=== PATIENT | female | born 1985 | race African-American/Black ===

== ENCOUNTER 2016-04-11 11:18 | Emergency (ER) | payer SELFPAY ==
[~2016-04-11 11:18] MED LIST: AMOX400S3 PO; MMW SS
[2016-04-11 11:20] VITALS: BP 127/90; PULSE 80; RESP 16; TEMP 98; O2SAT 97
[2016-04-11] MEDS ORDERED: IBUPROFEN 800 MG TAB PO ONE (15:00)
--- NOTE | 2016-04-11 15:37 | RADRPT ---
EXAM DATE/TIME: 04/11/2016 15:15 [facility] COMPARISON: TOE RIGHT 1ST DIGIT(MIN 2VWS), June 07, 2014, 11:43. INDICATIONS : Pain in great toe after hitting it on couch. MEDICAL HISTORY : Previous fracture to great toe. SURGICAL HISTORY : None. ENCOUNTER: Initial ACUITY: 1 day PAIN SCORE: 10/10 LOCATION: Right Foot FINDINGS: Two view examination of the right foot demonstrates no soft tissue swelling, dislocation, or fracture . The calcaneus is intact. Bony mineralization is normal. CONCLUSION: 1. No acute bony abnormality identified. Kole Haro MD on April 11, 2016 at 15:32 Board Certified Radiologist. This report was verified electronically.
[2016-04-11] MEDS ORDERED: IBUP800T23 PO (15:45)
--- NOTE | 2016-04-11 15:45 | PD ---
HPI Chief Complaint: Pain: Acute or Chronic Time Seen by Provider: 15:00 Travel History International Travel<30 days: No Contact w/Intl Traveler<30days: No Traveled to known affect area: No History of Present Illness HPI Patient is a 30-year-old female who presented to emergency for evaluation of right first toe pain. Patient states she kicked her sofa just prior to arrival. She states that her pain is an 8 out of 10 and describes as aching and throbbing. Patient did not take anything for the pain because she said she was "waiting here for 3 hours". She denies any other complaints at this time. [facility]MERLY [facility] Past Medical History Medical History: Denies Significant Hx Diminished Hearing: No ?: Not : 2 Para: 0 Miscarriage: 0 : 1 Dilation and Curettage (D&C): No Past Surgical History Gynecologic Surgery: Yes () Social History Alcohol Use: No Tobacco Use: Yes (4-10 cigarettes per day but has discontinued throughout ) Substance Use: Yes (MARIJUANA-NOT SINCE PREG) Allergies-Medications (Allergen,Severity, Reaction): Coded Allergies: No Known Allergies (Verified , 04/11/16) Reported Meds & Prescriptions Reported Meds & Active Scripts Active Review of Systems Except as stated in HPI: all other systems reviewed are Neg Musculoskeletal: Positive: Myalgias, Arthralgias Physical Exam Narrative GENERAL: Well-nourished, well-developed patient. SKIN: Warm and dry. HEAD: Normocephalic. EYES: No scleral icterus. No injection or drainage. NECK: Supple, trachea midline. No JVD or lymphadenopathy. CARDIOVASCULAR: Regular rate and rhythm without murmurs, gallops, or rubs. RESPIRATORY: Breath sounds equal bilaterally. No accessory muscle use. GASTROINTESTINAL: Abdomen soft, non-tender, nondistended. MUSCULOSKELETAL: No cyanosis, or edema. No obvious deformity noted to right first toe. Positive pedal pulses, brisk less than 3 second capillary refill. 5 out of 5 muscle strength in bilateral lower extremities. Data Data Last Documented VS Vital Signs Date Time Temp Pulse Resp B/P Pulse Ox O2 Delivery O2 Flow Rate FiO2 04/11/16 11:20 98.0 80 16 127/90 97 Room Air Orders Foot, Limited (2vws) (04/11/16 ) Ibuprofen (Motrin) (04/11/16 15:00) MDM Medical Decision Making Medical Screen Exam Complete: Yes Emergency Medical Condition: Yes Interpretation(s) Vital Signs Date Time Temp Pulse Resp B/P Pulse Ox O2 Delivery O2 Flow Rate FiO2 04/11/16 11:20 98.0 80 16 127/90 97 Room Air Differential Diagnosis Fracture versus contusion versus sprain versus strain versus other Narrative Course Patient is a 30 year old female who presented to emergency for evaluation of right first toe pain that she sustained when kicking her couch prior to arrival. Patient has not taken anything to help alleviate her pain. Patient is neurovascularly intact, imaging ordered. Imaging of the right foot was negative for acute fracture or abnormality. Patient was given ibuprofen emergency department for pain. She is encouraged to continue range of motion exercises, apply warm moist heat alternating with ice to affected area. She can follow-up with her primary doctor. She can return to emergency department if she has any new or worsening symptoms. Patient is stable for discharge. Diagnosis Primary Impression: Toe pain, right Referrals: Primary Care Physician Patient Instructions: General Instructions Additional Instructions: Take medications as directed Follow-up with your primary doctor Return to emergency department for any new or worsening symptoms Med/Other Pt SpecificInfo: Prescription(s) given Scripts Ibuprofen 800 Mg [id number] Mg PO Q8H PRN (Pain/Inflammation) #60 TAB Ref 0 Prov:Karlie Maldonado 04/11/16 Disposition: 01 DISCHARGE HOME Condition: Stable Karlie Maldonado Apr 11, 2016 15:45
== END 2016-04-11 16:02 | disposition home or self-care (01) ==
LOC: NEPB 11:18
DX: M79.674 Pain in right toe(s) (principal); W22.09XA Striking against other stationary object, initial encounter
CPT/HCPCS: 73620; 99283

== ENCOUNTER 2016-11-05 16:28 | Emergency (ER) | payer SELFPAY ==
[~2016-11-05] VITALS: Ht 160 cm; Wt 77.5 kg
[~2016-11-05 16:28] MED LIST changes: -AMOX400S3 PO; +IBUP800T23 PO; -MMW SS
[2016-11-05 16:37] VITALS: BP 128/77; PULSE 79; RESP 16; TEMP 98.9; O2SAT 99
--- NOTE | 2016-11-05 16:57 | PD ---
HPI Chief Complaint: [employer] Problem/Complaint Time Seen by Provider: 16:41 Travel History International Travel<30 days: No Contact w/Intl Traveler<30days: No Traveled to known affect area: No History of Present Illness HPI PATIENT COMES IN C/O IRREGULAR VAG BLEEDING, MISSED LAST MONTH, ON 2 WEEKS EARLY FOR THIS MONTH, STATES UNDER A LOT OF STRESS AND ITS NOT UNUSUAL FOR HER PERIODS TO BECOME IRREGULAR. CRAMPY SUPRAPUBIC DISCOMFORT, 07/16, ASSOC WITH BLEEDING, CURRENTLY NO ACTIVE BLEEDING. PATIENT STATES NO PMHX, ONLY ONE CSECTION AND ONE ELECTIVE AB, FOR A , NKDA. PFSH Past Medical History Medical History: Denies Significant Hx Diminished Hearing: No Tetanus Vaccination: > 5 Years Influenza Vaccination: Yes ?: Unknown LMP: 2 MONTHS AGO : 2 Para: 1 Miscarriage: 0 : 1 Dilation and Curettage (D&C): No Past Surgical History Section: Yes Gynecologic Surgery: Yes () Social History Alcohol Use: Yes (SOCIAL) Tobacco Use: Yes (SOCIAL) Substance Use: No Allergies-Medications (Allergen,Severity, Reaction): Coded Allergies: No Known Allergies (Verified , 11/05/16) Reported Meds & Prescriptions Reported Meds & Active Scripts Active No Active Prescriptions or Reported Medications Review of Systems Except as stated in HPI: all other systems reviewed are Neg Genitourinary: Positive: Vaginal Bleeding Physical Exam Narrative GENERAL: SKIN: Warm and dry. HEAD: Atraumatic. Normocephalic. EYES: Pupils equal and round. No scleral icterus. No injection or drainage. ENT: No nasal bleeding or discharge. Mucous membranes pink and moist. NECK: Trachea midline. No JVD. CARDIOVASCULAR: Regular rate and rhythm. RESPIRATORY: No accessory muscle use. Clear to auscultation. Breath sounds equal bilaterally. GASTROINTESTINAL: Abdomen soft, non-tender, nondistended. MUSCULOSKELETAL: Extremities without clubbing, cyanosis, or edema. No obvious deformities. NEUROLOGICAL: Awake and alert. No obvious cranial nerve deficits. Motor grossly within normal limits. Five out of 5 muscle strength in the arms and legs. Normal speech. PSYCHIATRIC: Appropriate mood and affect; insight and judgment normal. Data Data Last Documented VS Vital Signs Date Time Temp Pulse Resp B/P Pulse Ox O2 Delivery O2 Flow Rate FiO2 11/05/16 16:37 98.9 79 16 128/77 99 Orders Urinalysis - C+S If Indicated (11/05/16 16:50) Ct Abd/Pel W/O Iv Contrast (11/05/16 16:50) Ed Urine Pregnancytest Poc (11/05/16 16:50) Ketorolac Inj (Toradol Inj) (11/05/16 17:00) Ondansetron Odt (Zofran Odt) (11/05/16 17:00) Labs Laboratory Tests Test 11/05/16 16:55 Urine Collection Type CLEAN CATCH Urine Color YELLOW Urine Turbidity CLEAR Urine pH 6.0 Urine Specific [place] 1.026 Urine Protein NEG mg/dL Urine Glucose (UA) NEG mg/dL Urine Ketones NEG mg/dL Urine Occult Blood LARGE Urine Nitrite NEG Urine Bilirubin NEG Urine Leukocyte Esterase NEG Urine RBC 25-49 /hpf Urine WBC 0-2 /hpf Urine Squamous Epithelial 0-5 /hpf Cells Microscopic Urinalysis Comment CULT NOT INDICATED MDM Medical Decision Making Medical Screen Exam Complete: Yes Emergency Medical Condition: Yes Medical Record Reviewed: Yes Differential Diagnosis UTI V RELATED V COLITIS V KIDNEY STONE V DYSMENORRHEA Narrative Course PATIENT SEEN AND IMMEDIATELY TESTED FOR BEDSIDE , WHICH WAS NEGATIVE, NOW WILL SEND UA FOR EVALUATION AND CT WITHOUT CONTRAST TO ENSURE NO COLITIS IS MISSED...UA NEG FOR UTI AND CT NEG FOR ANY DIVERTIC/COLITIS. Diagnosis Primary Impression: DYSFUNCTIONAL UTERINE BLEEDING Scripts Norethindrone-Ethinyl Estradiol-Fe (Lo Loestrin Fe 04/17)1-10 Mg-Mcg Tab1 Tab PO DAILY #1 PACK Ref 0 Prov:Tyler Fonseca MD 11/05/16 Tramadol (Ultram)50 Mg Tab50 Mg PO Q4H PRN (PAIN) #28 TAB Prov:Tyler Fonseca MD 11/05/16 Disposition: 01 DISCHARGE HOME Condition: Stable Tyler Fonseca MD Nov 05, 2016 16:57
[2016-11-05] MEDS ORDERED: KETOROLAC TROMETHAMINE 60 MG/2 ML (IM) VIAL IM ONE (17:00)
[2016-11-05] MEDS ORDERED: ONDANSETRON ODT 4 MG TAB PO ONE (17:00)
[2016-11-05 17:11] LABS: BLOOD, URINE LARGE (NEG); GLUCOSE,URINE NEG (NEG); KETONE, URINE NEG (NEG); NITRITE,URINE NEG (NEG)
[2016-11-05 17:17] LABS: METHOD OF COLLECTION CLEAN CATCH; URINE COLOR YELLOW (YELLW/STRAW)
[2016-11-05 17:18] LABS: COMMENT (UR) CULT NOT INDICATED; CULTURE IF INDICATED CULT NOT INDICATED; SQUAMOUS EPITHELIAL CELL URINE 0-5 /hpf (0-5); WBC, URINE 0-2 /hpf (0-5)
--- NOTE | 2016-11-05 17:34 | RADRPT ---
EXAM DATE/TIME: 11/05/2016 16:57 [facility] COMPARISON: CT ABDOMEN & PELVIS W CONTRAST, February 26, 2011, 14:24. INDICATIONS : Vaginal bleeding and suprapubic pain. ORAL CONTRAST: No oral contrast ingested. RADIATION DOSE: 10.99 CTDIvol (mGy) MEDICAL HISTORY : None SURGICAL HISTORY : section. ENCOUNTER: Initial ACUITY: 1 day PAIN SCALE: 6/10 LOCATION: pelvis TECHNIQUE: Volumetric scanning of the abdomen and pelvis was performed. Using automated exposure control and ad justment of the mA and/or kV according to patient size, radiation dose was kept as low as reasonably achievable to obtain optimal diagnostic quality images. DICOM format image data is available electro nically for review and comparison. FINDINGS: CT Abdomen: The liver, spleen, pancreas, kidneys, adrenals are unremarkable. There is no evidence for any appreciable pathological adenopathy, free fluid, or bowel obstruction. There is no evidence for any stones in the kidneys or the course of the ureters on either side. There is no hydronephrosis. CT pelvis: There is no evidence for mass, abscess formation, or any significant adenopathy within the pelvis. No definite fracture is seen for technique. CONCLUSION: Essentially unremarkable study. Bailee Cerda MD on November 05, 2016 at 17:30 Board Certified Radiologist. This report was verified electronically.
[2016-11-05] MEDS ORDERED: LO LTAB PO (17:45)
[2016-11-05] MEDS ORDERED: ULTR50TA5 PO (17:45)
[2016-11-05 18:03] VITALS: BP 113/64; PULSE 79; RESP 16; O2SAT 100
== END 2016-11-05 18:14 | disposition home or self-care (01) ==
LOC: PHED 16:28
DX: N93.8 Other specified abnormal uterine and vaginal bleeding (principal); R10.2 Pelvic and perineal pain; Z72.0 Tobacco use
CPT/HCPCS: 74176; 81001; 84703; 96372; 99285; J1885